=== PATIENT | female | born 1955 | race Caucasian/White ===

== ENCOUNTER 2018-02-17 12:48 | Emergency (ER) | payer OTHER ==
[~2018-02-17] VITALS: Ht 157.5 cm; Wt 77.1 kg
--- NOTE | ~2018-02-17 | EKG ---
[place] [address] [facility] [place] [address] ELECTROCARDIOGRAM REPORT Name: KATIE FIELDS [id number] Admission: 02/17/18 Attend Phys: Discharge: 02/17/18 Date of : 55 Report #: [id number] THIS REPORT FOR: //name// [facility] ED Test Date: 2018-02-17 Test Time: 12:50:40 Pat Name: KATIE FIELDS Department: Room: Gender: F Budget Director: DEVANTE : 1955 Requested By: Abhinav Stewart Order Number: [id number] MD: Ramsey Reeves Measurements Intervals [place] Rate: 74 P: -23 NC: 174 QRS: -4 QRSD: 153 T: 123 QT: 438 QTc: 486 Interpretive Statements Sinus rhythm Left bundle branch block Compared to ECG 07/15/2016 09:12:40 No significant changes Electronically Signed On 02-18-2018 7:40:44 CDT by Ramsey Reeves [email or web address] <ELECTRONICALLY SIGNED> By: Ramsey Reeves MD, [facility] 02/18/18 0740 1250 1250 Ramsey Reeves MD, FACC /EPI
[~2018-02-17 12:48] MED LIST: 1ST CHOICE LAN1 EACH MC; ALBUTEROL INHAL17 GM IH; AVELOX 400 MG400 MG PO; AZITHROMYCIN 2250 MG PO; CIPROFLOXACIN500 M1 PO; CLEOCIN HCL150 MG PO; DOXYCYCLINE 10100 M1 PO; DOXYCYCLINE 10100 MG PO; FLEXERIL PO; HUMULIN N100 UNIT/1 SQ; HUMULINR100 SUBQ; IBUPROFEN 600600 M1 PO; MACROBID 100 M100 M1 PO; MOBIC7.5 MG PO; NAPROSYN500 M1 PO; NAPROSYN500 MG PO; NORCO 5-325 TA1 EACH PO; NOVOLIN N100 UNIT/1; NOVOLIN N100 UNIT/1 SUBQ; NOVOLIN N100 UNIT/3 IJ; NOVOLIN R100 UNIT/1 SUBQ; NOVOLOG100 UNIT/1 SUBQ; ONDANSETRON HCL4 M2 PO; PREDNISONE 20 M20 MG PO; PROMETHAZINE D480 ML GT; TESSALON200 MG PO; TRIAM60 TP; TUSSIONEX PENN473 ML PO; VENTOLIN HFA 1818 GM INH; VIBRAMYCIN 100100 M2 PO
[2018-02-17 13:14] LABS: ABSOLUTE NEUTROPHILS 2.4 thou/uL (1.4-8.2); BASOPHILS 0.9 % (0.0-2.0); EOSINOPHILS 2.6 % (0.0-3.0); HEMATOCRIT 36.6 % (37.0-47.0); HEMOGLOBIN 12.2 gm/dL (12.0-15.0); LYMPHOCYTES 36.4 % (24.0-44.0); MCH 29.7 pg (26.0-34.0); MCHC 33.4 g/dL (28.0-37.0); MONOCYTES 9.4 % (1.0-8.0); PLATELET COUNT 247 thou/uL (150-400); POLYS 50.7 % (36.0-66.0); RBC 4.11 mil/uL (4.20-5.00); RDW 14.7 % (10.5-14.5); WBC 4.8 thou/uL (4.0-11.0)
[2018-02-17 13:19] LABS: ANION GAP 13 mmol/L (7-16); BUN 32 mg/dL (7-18); CALCIUM 9.6 mg/dL (8.5-10.1); CHLORIDE 103 mmol/L (98-107); CO2 22 mmol/L (21-32); CREATININE 1.5 mg/dL (0.6-1.0); GLUCOSE 76 mg/dL (74-106); SODIUM 138 mmol/L (136-145)
[2018-02-17 13:25] LABS: TROPONIN-I < 0.04 ng/mL (<0.06)
[2018-02-17 15:59] VITALS: BP 129/45
== END 2018-02-17 16:11 | disposition home or self-care (01) ==
LOC: ER 12:48
PROVIDERS: Physician Assistant
DX: I95.1 Orthostatic hypotension (principal); E11.22 Type 2 diabetes mellitus with diabetic chronic kidney disease; N18.9 Chronic kidney disease, unspecified; Z88.0 Allergy status to penicillin; Z88.2 Allergy status to sulfonamides; Z88.1 Allergy status to other antibiotic agents; Z88.5 Allergy status to narcotic agent

== ENCOUNTER 2018-09-17 20:10 | Emergency (ER) | payer OTHER ==
[~2018-09-17] VITALS: Ht 157.5 cm; Wt 72.6 kg
[2018-09-17 20:35] LABS: ABSOLUTE NEUTROPHILS 2.5 thou/uL (1.4-8.2); HEMOGLOBIN 11.9 gm/dL (12.0-15.0); LYMPHOCYTES 35.9 % (24.0-44.0); MCH 29.6 pg (26.0-34.0); MCV 86.9 fL (80.0-100.0); MONOCYTES 9.3 % (1.0-8.0); PLATELET COUNT 221 thou/uL (150-400); POLYS 50.8 % (36.0-66.0); RBC 4.03 mil/uL (4.20-5.00); RDW 14.8 % (10.5-14.5); WBC 4.9 thou/uL (4.0-11.0)
[2018-09-17] MEDS ORDERED: SYNTHROID175 MCG PO (20:37)
[2018-09-17 20:40] LABS: CALCIUM 9.5 mg/dL (8.5-10.1); CREATININE 1.4 mg/dL (0.6-1.0); POTASSIUM 3.8 mmol/L (3.5-5.1)
[2018-09-17 22:08] VITALS: BP 132/39
== END 2018-09-17 22:10 | disposition home or self-care (01) ==
LOC: ER 20:10
PROVIDERS: Emergency Medicine
DX: R25.2 Cramp and spasm (principal); E11.9 Type 2 diabetes mellitus without complications; E03.9 Hypothyroidism, unspecified; Z88.5 Allergy status to narcotic agent; Z88.0 Allergy status to penicillin; Z88.2 Allergy status to sulfonamides; Z88.8 Allergy status to other drugs, medicaments and biological substances; Z88.6 Allergy status to analgesic agent; Z79.4 Long term (current) use of insulin

== ENCOUNTER 2018-11-05 15:25 | Inpatient (IN) | payer OTHER ==
[~2018-11-05] VITALS: Ht 157.5 cm; Wt 77.1 kg
[~2018-11-05 15:25] MED LIST changes: +SYNTHROID175 MCG PO
[2018-11-05 15:26] VITALS: BP 168/74
[2018-11-05 15:59] LABS: BASOPHILS 0.9 % (0.0-2.0); EOSINOPHILS 3.9 % (0.0-3.0); HEMATOCRIT 35.2 % (37.0-47.0); HEMOGLOBIN 11.2 gm/dL (12.0-15.0); LYMPHOCYTES 18.3 % (24.0-44.0); MCH 28.6 pg (26.0-34.0); MCV 89.4 fL (80.0-100.0); MONOCYTES 9.9 % (1.0-8.0); PLATELET COUNT 248 thou/uL (150-400); RBC 3.94 mil/uL (4.20-5.00); RDW 14.8 % (10.5-14.5); WBC 4.5 thou/uL (4.0-11.0)
[2018-11-05 16:01] LABS: CALCIUM 8.9 mg/dL (8.5-10.1); CREATININE 1.1 mg/dL (0.6-1.0); POTASSIUM 4.8 mmol/L (3.5-5.1)
[2018-11-05 16:07] LABS: ALBUMIN 3.1 g/dL (3.4-5.0); TOTAL PROTEIN 7.2 g/dL (6.4-8.2)
[2018-11-05 17:01] LABS: URINE BILIRUBIN NEGATIVE (Negative); URINE BLOOD 2+ (Negative); URINE CLARITY CLEAR; URINE COLOR YELLOW; URINE GLUCOSE-RANDOM* 3+ (Negative); URINE KETONES NEGATIVE (Negative); URINE LEUKOCYTES-REFLEX NEGATIVE (Negative); URINE NITRITE-REFLEX NEGATIVE (Negative); URINE PROTEIN (DIPSTICK) NEGATIVE (Negative); URINE UROBILINOGEN 0.2 E.U./dl (0.2-1.0)
[2018-11-05 17:06] VITALS: BP 157/83
[2018-11-05 17:22] LABS: BACTERIA-REFLEX 1-9 Few /HPF (None Seen); CASTS None Seen /LPF (None Seen); CRYSTALS None Seen /LPF (None Seen); SQUAMOUS 0-3 Few /LPF (0-3); URINE RBC 3-10 Few /HPF (0-2); URINE WBC-REFLEX None Seen /HPF (0-5)
[2018-11-05 17:30] VITALS: BP 152/74
--- NOTE | 2018-11-05 19:26 | NUR ---
Pt arrived to floor at 1745 per cart from emergency dept in stable condition. Pt oriented to room environment and instructed ethylbenzene converter helper light usage.Dinner given.Around 1800,pt was asked if came with home meds since she has lots of personal belongings parked in big stroller during admission.She said she has meds and not ready to declare nor release it.This rn told pt that meds cannot be kept at bs and will be sent to pharmacy to keep till dc time.Pt said she prefered to go against medical advice.Nursing casino floor supervisor and Lesli Abdul gate clerk notified.Pt escorted out of the room in wc after signing the paperwork at 1832 and saline lock dc'd.
--- NOTE | 2018-11-06 22:05 | EKG ---
[address] [place] [address] ELECTROCARDIOGRAM REPORT Name: KATIE FIELDS Room #: 430-P [facility] IN M.R.#: [id number] ������������������ Admission: 11/05/18 ������������������ Attend Phys: Yuni Herrera Discharge: 11/05/18 ������������������ Date of : 55 Report #: [id number] ����������������������������������������������������������������� [id number] THIS REPORT FOR: //name// [facility] ED Test Date: 2018-11-05 Test Time: 16:14:33 Pat Name: KATIE FIELDS Department: Room: [facility] Gender: F Bakery Clerk: JESUS : 1955 Requested By: Vidal Sellers Order Number: [id number] MD: Andreas Rainey Measurements Intervals [place] Rate: 99 P: 53 NM: 171 QRS: 8 QRSD: 148 T: 146 QT: 393 QTc: 505 Interpretive Statements Sinus rhythm Left bundle branch block Baseline wander in lead(s) V6 Compared to ECG 02/17/2018 12:50:40 No significant changes Electronically Signed On 11-06-2018 22:05:45 SHIP'S OFFICER by Andreas Rainey [email or web address] ��������������������������������������������� <ELECTRONICALLY SIGNED> ���������������������������������������� By: Andreas Rainey MD ��������������������������������������������� 11/06/18 2205 1614 1614 Andreas Rainey MD /EPI
== END 2018-11-05 18:32 | disposition left against medical advice (07) | DRG 602 ==
LOC: ER 15:25 → EROBS 16:39 → 4E 17:20
PROVIDERS: Emergency Medicine; ADMIT Hospitalist
DX: L03.116 Cellulitis of left lower limb (principal); E43 Unspecified severe protein-calorie malnutrition; L03.115 Cellulitis of right lower limb; E03.9 Hypothyroidism, unspecified; E11.65 Type 2 diabetes mellitus with hyperglycemia; Z53.21 Procedure and treatment not carried out due to patient leaving prior to being seen by health care provider; Z79.4 Long term (current) use of insulin; Z88.6 Allergy status to analgesic agent; Z88.1 Allergy status to other antibiotic agents; Z88.0 Allergy status to penicillin; Z88.2 Allergy status to sulfonamides; Z88.8 Allergy status to other drugs, medicaments and biological substances; Z59.0 Homelessness; Z79.899 Other long term (current) drug therapy
CPT/HCPCS: 10084

== ENCOUNTER → 2018-11-22 | Outpatient (CLI) | payer OTHER | LOC: HYPER 11-15 10:34 | DX: E11.622 Type 2 diabetes mellitus with other skin ulcer (principal); I87.333 Chronic venous hypertension (idiopathic) with ulcer and inflammation of bilateral lower extremity; L97.821 Non-pressure chronic ulcer of other part of left lower leg limited to breakdown of skin; L97.811 Non-pressure chronic ulcer of other part of right lower leg limited to breakdown of skin; L30.9 Dermatitis, unspecified; I89.0 Lymphedema, not elsewhere classified; E11.21 Type 2 diabetes mellitus with diabetic nephropathy; E11.22 Type 2 diabetes mellitus with diabetic chronic kidney disease; I12.9 Hypertensive chronic kidney disease with stage 1 through stage 4 chronic kidney disease, or unspecified chronic kidney disease; N18.9 Chronic kidney disease, unspecified; E03.9 Hypothyroidism, unspecified; Z79.4 Long term (current) use of insulin ==

== ENCOUNTER 2019-07-30 18:37 | Inpatient (IN) | payer OTHER ==
[~2019-07-30] VITALS: Ht 157.5 cm; Wt 74.8 kg
[2019-07-30 18:38] VITALS: BP 191/80
[2019-07-30 19:28] LABS: BE(vivo) -2.3 mmol/L (-2 to +3); HCO3 21.1 mmol/L (22.0-26.0); PCO2 32.2 mmHg (35.0-45.0); pH 7.435 (7.360-7.450); sO2 91.7 % (92.0-98.0)
[2019-07-30 19:28] LABS: ABSOLUTE NEUTROPHILS 4.9 thou/uL (1.4-8.2); BASOPHILS 0.6 % (0.0-2.0); HEMATOCRIT 37.4 % (37.0-47.0); HEMOGLOBIN 12.4 gm/dL (12.0-15.0); LYMPHOCYTES 10.4 % (24.0-44.0); MCH 29.1 pg (26.0-34.0); MCV 88.1 fL (80.0-100.0); MONOCYTES 3.8 % (1.0-8.0); PLATELET COUNT 176 thou/uL (150-400); POLYS 85.2 % (36.0-66.0); RBC 4.25 mil/uL (4.20-5.00); RDW 13.7 % (10.5-14.5); WBC 5.7 thou/uL (4.0-11.0)
[2019-07-30 19:37] LABS: CALCIUM 9.3 mg/dL (8.5-10.1); CREATININE 1.3 mg/dL (0.6-1.0)
[2019-07-30 19:43] LABS: ALBUMIN 2.8 g/dL (3.4-5.0); TOTAL BILIRUBIN 0.9 mg/dL (<0.1-1.0)
[2019-07-30 21:06] VITALS: BP 163/70
[2019-07-30] MEDS ORDERED: HUMULIN N100 UNIT/1 SUBQ (21:53)
[2019-07-30 22:15] VITALS: BP 122/48
[2019-07-31] VITALS: BP 120/56
--- NOTE | 2019-07-31 03:24 | NUR ---
Admission history and assessments completed. Careplam initiated. Continues to require 6L/NC to maintain optimalsaturation. Cough mostly non productive. Clear when able to clear.
[2019-07-31 03:45] VITALS: BP 118/50
[2019-07-31 05:18] LABS: CALCIUM 8.3 mg/dL (8.5-10.1); CREATININE 1.4 mg/dL (0.6-1.0); POTASSIUM 4.2 mmol/L (3.5-5.1)
[2019-07-31 07:31] VITALS: BP 138/53
[2019-07-31] MEDS ORDERED: LEVAQUIN 500 M500 M5 PO (08:13)
[2019-07-31] MEDS ORDERED: BENZONATATE200 MG PO (08:14)
[2019-07-31 11:31] VITALS: BP 142/61
--- NOTE | 2019-07-31 12:02 | NUR ---
PATIENT REFUSED OT EVALUATION PLEASE REFER TO VARIANCE. WILL DISCHARGE AT THIS TIME. THANK YOU
--- NOTE | 2019-07-31 14:54 | NUR ---
ASSESSMENT: CM REVIEWED CHART AND MET WITH PATIENT AT THE BEDSIDE. PT WAS ADMITTED WITH ACUTE HYPOXIC RESPIRATORY FAILURE. CM MET WITH PATIENT TO DISCUSS HER LIVING ARRANGEMENTS AND PT STATES SHE IS A VERY PRIVATE PERSON. PT IS HOMELESS. PT REPORTS SHE STAYS SOMEWHERE OFF OF [facility] AND HAS ALL OF HER BELONGINGS WITH HER. PT STATES SHE USUALLY TAKES HER BELONGINGS WITH HER ON THE BUS AND GOES TO THE STORE AND IS ABLE TO TAKE CARE OF HERSELF. PT REPORTS SHE DOES NOT LIKE HOMELESS SHELTERS. CM ASKED WHERE PT PLANS ON STAYING AT DISCHARGE AND SHE REPORTS SHE IS ABLE TO TAKE CARE OF HERSELF AND SHE WILL RETURN WHERE SHE HAD BEEN STAYING OFF [facility]. PT REPORTS THAT SHE ENJOYS STAYING OUTSIDE AND HAS ENOUGH BELONGINGS TO KEEP HERSELF WARM. PT REPORTS SHE LIVED IN [place] IN THE PAST BUT STATES SHE DOES NOT LIKE [place] ON HER AND IS NOT INTERESTED IN STAYING IN A FACILITY WHERE SHE HAS TO CHECK IN OR BE BOTHERED BY PEOPLE. PT STATES SHE LIKES HER INDEPENDENCY AND WANTS TO RETURN TO HER PRIOR ARRANGEMENTS. CM DISCUSSED ROLE AND POSSIBLE RCF [place] SHE COULD STAY AT AND SHE STATES SHE PREFERS NOT TO. CM ASKED IF PATIENT NEEDED ANY RESOURCES AND SHE STATES SHE DOES NOT NEED ANYTHING AT THIS TIME AND IS COMFORTABLE TAKING CARE OF HERSELF. CM WILL CONTINUE TO FOLLOW TO ASSIST NEEDED.
[2019-07-31 16:10] VITALS: BP 162/67
[2019-07-31 19:19] VITALS: BP 139/93
--- NOTE | 2019-07-31 19:58 | NUR ---
PT HAS A PRODUCTIVE COUGH WITH CLEAR SPUTUM...ON 3L NC...DIMINISHED LUNG SOUNDS...
[2019-08-01 03:59] VITALS: BP 129/60
[2019-08-01 05:12] LABS: HEMATOCRIT 33.6 % (37.0-47.0); HEMOGLOBIN 10.6 gm/dL (12.0-15.0); MCH 28.2 pg (26.0-34.0); MCHC 31.6 g/dL (28.0-37.0); MCV 89.3 fL (80.0-100.0); RBC 3.77 mil/uL (4.20-5.00); RDW 14.2 % (10.5-14.5); WBC 5.6 thou/uL (4.0-11.0)
[2019-08-01 05:27] LABS: CALCIUM 9.1 mg/dL (8.5-10.1); CREATININE 1.1 mg/dL (0.6-1.0); POTASSIUM 4.3 mmol/L (3.5-5.1)
--- NOTE | 2019-08-01 07:19 | NUR ---
Received pt. with O2 at 3L/NC then RT titrated down to 1.5 N/C by morning. She verbalized shortness of breath with exertion but better. She stated she slept well in recliner chair but woke up sweating. She kept her room temp at 75 degrees then had heavy blanket/comforter. Up with SBA ,periods of being unsteady. Making progress towards care plan goals.
[2019-08-01 07:28] VITALS: BP 141/58
--- NOTE | 2019-08-01 08:10 | HC ---
[facility] [place] [address] CONSULTATION Name: KATIE FIELDS Room #: 350- ADM IN M.R.#: [id number] Admission: 07/30/19 Attend Phys: Alexander Romero MD Discharge: Date of : 55 Report #: [id number] THIS REPORT FOR: //name// CC: FAM physician/PCP Alexander Romero DATE OF SERVICE: 07/31/2019 ENDOCRINE CONSULTATION CONSULTING PHYSICIAN: Dr. Romero. REASON FOR CONSULTATION: Uncontrolled type 2 diabetes mellitus. HISTORY OF PRESENT ILLNESS: This is a 64-year-old female patient whose medical background is significant for type 1 diabetes mellitus diagnosed at the age of 16 as well as hypothyroidism. The patient is presented to us with the issue of shortness of breath and cough in the context of pneumonia and was admitted for further care and monitoring. Again, the patient notes that she has type 1 diabetes mellitus diagnosed at the age of 16 and notes that she is maintained on a regimen of NPH insulin, human regular insulin that she takes at a dosage of NPH 18 twice a day and human R insulin 60 units twice a day. She insists that her blood glucose values have been under excellent control and typically in the low 100s mg/dL without much issue with hypoglycemia. When asked about recent hemoglobin A1c, she noted that her primary care physician retains this information. She does not believe that diabetes has caused her any damage in the form of retinopathy, nephropathy or neuropathy. She does not have known cardiovascular disease history. The patient also has hypothyroidism for many years and is maintained on levothyroxine 175 mcg daily and made a comment that she has allergies towards it, but would not elaborate on how or what form of these allergies exactly take. REVIEW OF SYSTEMS: CONSTITUTIONAL: Fatigue, tiredness, but not fever or chills or changes in body weight. HEENT: Negative for sore throat, sinus pain or ear drainage. PULMONARY: Noted for dyspnea on exertion, chest tightness, cough, but no hemoptysis. CARDIAC: Negative for palpitations, syncope, presyncope, extremes of leg swelling. GASTROINTESTINAL: Occasional nausea, no vomiting, no major changes in bowel movement frequency. NEUROLOGY: Negative for loss of consciousness, seizure activity and she vaguely alluded to some numbness involving her feet. [facility] [address] [place] [address] CONSULTATION Name: KATIE FIELDS Room #: [address] [place] [address] IN M.R.#: [id number] Admission: 07/30/19 Attend Phys: Alxeander Romero MD Discharge: Date of : 55 Report #: [id number] SKIN: Negative for rash, ulceration or other major abnormalities. PSYCHIATRIC: Negative for delusions, hallucinations. Otherwise, review of systems noncontributory unless mentioned in HPI. PAST MEDICAL HISTORY: 1. Type 1 diabetes mellitus as noted above. 2. Hypothyroidism. 3. History of cellulitis. OUTPATIENT MEDICATIONS: Insulin 60 units twice a day and NPH insulin 18 units twice a day, levothyroxine 175 mcg daily. ALLERGIES: ROSIGLITAZONE, CODEINE, ERYTHROMYCIN, NIACIN, PENICILLIN, SULFA. She also noted that gabapentin does not work very well for her. FAMILY HISTORY: Noncontributory. SOCIAL HISTORY: The patient lives alone. She does not have children. Denies use of tobacco, alcohol or illicit drugs. When asked about where she lives, she became defensive and said that she does not like to share that with antibodies so that people would not bother her. PHYSICAL EXAMINATION: GENERAL: female patient who is not in apparent pain or distress. VITAL SIGNS: Blood pressure is 142/61 mmHg, heart rate is 85 beats per minute, respirations 20 per minute, temperature of 36.4 degrees. CONSTITUTIONAL: She was sitting at the side of her bed. She seems relatively comfortable, not in apparent distress. She was fairly distracted by her phone throughout my interview with her. HEENT: Anicteric sclerae. Intact extraocular motions. NECK: Supple, without JVD or thyromegaly. CHEST: Noted for moderate air entry with bilateral rhonchi and rales. No wheezes or crackles. HEART: Regular rate and rhythm without murmurs or gallops. ABDOMEN: Soft and lax without tenderness or organomegaly. She has active bowel sounds. EXTREMITIES: Lower extremity exam noted for trace ankle edema. No skin breaks, ulcerations. Pedal pulses are appreciated. NEUROLOGIC: Awake, alert and oriented to time, place and person. The rest of her examination was largely nonfocal. PSYCHIATRIC: Flat mood and affect, interactive, able to answer essentially all my questions; however, noted for orally defensive tone. She expressed multiple times that she is very protective of her identity of her place of living of her diabetes management and that she really does not like people interfering with any of these. She had flight of ideas. She occasionally would go to the topics that were not provided by myself and talked about a random people and events in [facility] [address] [place] [address] CONSULTATION Name: KATIE FIELDS Room #: 350-P ADM IN M.R.#: [id number] Admission: 07/30/19 Attend Phys: Alexander Romero MD Discharge: Date of : 55 Report #: [id number] her life. LABORATORY DATA: Blood glucose values here were at 284, then 391 this morning and most recently 454. Sodium 130, potassium 4.2, chloride 97, CO2 of 25, anion gap 8, BUN 28, creatinine 1.4, AST 33, amylase 58, lipase 206. Total bilirubin 0.9, calcium 8.3, phosphorus 2.6, magnesium 1.8, alkaline phosphatase 101, ALT 22, total protein 8.0, albumin 2.8, EGFR 38, white blood count 5.7, hemoglobin 12.4, hematocrit 37.4, platelets 176. Hemoglobin A1c obtained in 04/2009 was at 16.5. ASSESSMENT AND PLAN: 1. Type 1 diabetes mellitus. As noted above, the patient has type 1 diabetes mellitus that she claims to control well with a regimen of NPH insulin and R insulin. However, her historic hemoglobin A1c data as well as her current blood glucose data contradicted this notion a rather strongly. I noticed repeatedly during my conversation with her that she seemed rather uninterested in acquiring help to manage her diabetes and said that she is capable of doing this on her own. I explained that the current circumstances of an active pulmonary infection as well as the need to use intravenous glucocorticoids, which she has been started on __ the high potential to worsen hyperglycemia, which she acknowledged. Eventually, she agreed to be me supervising her diabetes care during this hospital stay. I will request a hemoglobin A1c to update our understanding of her level of control over the past few months. I will also restore a basal bolus regimen in the form of a 14 units of NPH twice a day as well as coverage with 8 units of R insulin for each meal while we support her with the Humalog supplemental scale low intensity. Blood glucose monitoring will commence a.c. and at bedtime and further adjustments to her regimen will be conducted as needed. 2. Hypothyroidism. The patient has longstanding hypothyroidism and is maintained on levothyroxine dose of 175 mcg daily. This will be continued here, but I will also check a TSH and free T4 levels to better understand the efficacy of this dosage. 3. Diabetic neuropathy. The patient was placed on gabapentin to control her diabetes neuropathic symptoms. 4. Pneumonia. The patient is currently maintained on Rocephin and Zithromax as well as IV glucocorticoids as per hospital medicine team. I certainly appreciate this consultation by Dr. Romero. <ELECTRONICALLY SIGNED> By: Lacho Bass MD 08/01/19 0810 1249 0048 Lacho Bass MD /nt
[2019-08-01 17:01] VITALS: BP 168/66
--- NOTE | 2019-08-01 18:06 | NUR ---
ASSUMED PATIENT CARE AT 0700. TITRATED TO RA. AMBULATED IN ROOM WITHSTEADY GAIT. PATIENT BREFUSED NOON BS CHECK AND REFUSED TO HAVE LISPRO IN AM THAT STATE MY BLOOD SURGER OK 300 TO 400. NOT TOWARDS POC GOALS,
--- NOTE | 2019-08-01 19:00 | EKG ---
[place] [address] [address] [facility] [place] [address] ELECTROCARDIOGRAM REPORT Name: KATIE FIELDS Room #: 350-P ADM IN M.R.#: [id number] Admission: 07/30/19 Attend Phys: Alexander Romero MD Discharge: Date of : 55 Report #: [id number] THIS REPORT FOR: //name// [facility] ED Test Date: 2019-07-30 Test Time: 19:18:20 Pat Name: KATIE FIELDS Department: Room: 350 Gender: F Director Workforce Management: JANNA : 1955 Requested By: Branden Munson Order Number: [id number] MD: Ramsey Reeves Measurements Intervals [place] Rate: 111 P: 60 [place]: 152 QRS: -9 QRSD: 145 T: 150 QT: 358 QTc: 487 Interpretive Statements Sinus tachycardia Left bundle branch block Baseline wander in lead(s) V4 Compared to ECG 11/05/2018 16:14:33 No significant change was found Electronically Signed On 08-01-2019 19:00:02 INTEGRATIVE MEDICINE PHYSICIAN by Ramsey Reeves [email or web address] <ELECTRONICALLY SIGNED> By: Ramsey Reeves MD, [facility] 08/01/191899 17 17 Ramsey Reeves MD, [facility] /EPI
[2019-08-01 19:12] VITALS: BP 156/67
[2019-08-01 23:17] VITALS: BP 170/77
--- NOTE | 2019-08-01 23:21 | NUR ---
Telemetry discontinued this evening. Pt. transferred to with all her belongings.Tolerating room air well though verbalized shortness of breath with exertion. Making progress towards care plan goals.
--- NOTE | 2019-08-02 03:20 | NUR ---
ASSUMED PT CARE AT 2310. PT IS ALERT AND ORIENTED. DURING THE REASSESSMENT THE PT ASKS QUESTIONS ABOUT WHAT I AM DOING AND WHY. PT STATES THAT SHE IS READY TO GET OUT OF THE HOSPITAL AND GET SOME FRESH AIR. PT IS AWARE OF HER LOCATION AND WHY SHE IS IN THE HOSPITAL. PT WANTS HER BELONGINGS CLOSE TO HER. PT STATED THAT SHE WAS HUNGRY AND I OFFERED HER SNACKS AND SHE SAID THAT SHE HAD SOME IN HER LUGG[place] AND THAT SHE JUST NEEDED CRACKERS. PT ASKS MULTIPLE TIMES WHEN SHE WOULD BE LEAVING. STATEST THAT A FRIEND OF HER IS GOING TO GET A HOTEL FOR HER ONCE SHE LEAVES THE HOSPITAL. PT IS VURRENTLY SLEEP IN HER CHAIR. WILL CONTINUE TO MONITOR.
[2019-08-02 04:46] VITALS: BP 166/76
--- NOTE | 2019-08-02 06:54 | NUR ---
PT STILL ON RA,TOLERATING WELL O2 SAT ABOVE 95 .NO C/O SOB NOTED SO FAR.PT SLEPT IN THE RECLINER IN HER ROOM PER HER REQUEST.
[2019-08-02 08:19] VITALS: BP 162/57
--- NOTE | 2019-08-02 14:25 | NUR ---
ASSUMED CARE OF PT AT 0700. PT REFUSES TO TAKE ANY INSULIN OTHER THAN HUMALIN R REGULAR. EXPLAINED TO PT THE IMPORTANCE OF TAKING INSULIN WITH THE BS BEING HIGH AND PT STILL REFUSED. PT REFUSES BS CHECKS PERIODICALLY AND REFUSES MEDICATIONS UNTIL SHE IS CALM. PT ONLY WANTS ONE THING TO BE DONE AT A TIME. L FOREARM IV IS DRY AND INTACT. PT REFUSED SCD'S AND IS UP IN THE CHAIR. PT HAD A BM TODAY. PT WANTS TO BE DISCHARGED BY TOMORROW. PT IS NOT A FALL RISK BUT PT HAS BEEN EDUCATED ON FALL PRECAUTIONS. CALL LIGHT IS IN REACH. WILL CONTINUE TO MONITOR THE PT.
[2019-08-02 17:41] VITALS: BP 122/81
[2019-08-02 19:47] VITALS: BP 172/69
--- NOTE | 2019-08-03 04:04 | NUR ---
ASSUMED PT CARE ON 08/03/19 AT 1920. PT IS ALERT AND ORIENTED X4. PT IS UP AD ELÍAS. PT HAD A BLOOD SUGAR OF 463. I CALLED THE PHYSICIAN. HE INSTRUCTED TO GIVE A ONE TIME ORDER OF 15 UNITS OF LISPRO. PT TOOK THIS INSULIN WILLINGLY. PT REFUSED THE OTHER INSULIN. PT TOOK THE ORAL MEDICATION WILLINGLY. WHEN I ASKED IF THE PT NEEDED ANYTHING SHE STATED THAT SHE WANTED TO FIND SOME WHERE TO LIVE AND TO PAY DIFFERENTLY. PT VOICES THAT SHE IS READY TO DISCHARGE FROM THE HOSPITAL. PT REFUSED TO GET INTO BED, PT IS ASLEEP IN CHAIR. WILL CONTINUE TO MONITOR.
[2019-08-03 04:57] LABS: HEMATOCRIT 34.2 % (37.0-47.0); HEMOGLOBIN 10.9 gm/dL (12.0-15.0); MCH 28.2 pg (26.0-34.0); MCHC 31.9 g/dL (28.0-37.0); MCV 88.1 fL (80.0-100.0); RBC 3.88 mil/uL (4.20-5.00); RDW 14.5 % (10.5-14.5); WBC 6.1 thou/uL (4.0-11.0)
[2019-08-03 05:03] LABS: CALCIUM 8.7 mg/dL (8.5-10.1); POTASSIUM 4.3 mmol/L (3.5-5.1)
[2019-08-03 08:30] VITALS: BP 185/76
[2019-08-03] MEDS ORDERED: SYNTHROID100 MC1 PO (12:42)
[2019-08-03 14:29] VITALS: BP 185/76
--- NOTE | 2019-08-03 19:48 | NUR ---
PT CARE ASSUMED APPROX. 0700. A&Ox4. IV INTACT. REMOVED AT DISCHARGE. PT DISCHARGED. REFUSED ANY AFTER CARE WITH SPA RECEPTIONIST. PT. INFORMED THAT HER SCRIPT WAS CALLED IN AND THAT SHE NEEDED TO GO PICK IT UP INFRMED MYSELF THAT SHE WOULD NOT BE ABLE TO GET IT UNTIL TOMORROW. PT. REFUSED HER INSULIN AT 1130. AFTER REEDUCATING ABOUT THE NEED AND HOW INSULIN WORKS SHE STILL REFUSED.
== END 2019-08-03 16:30 | disposition home or self-care (01) | DRG 871 ==
LOC: ER 18:37 → 3W 20:36 → EROBS 20:36 → 4S 20:36 → 3W 21:55 → 3N 21:59 → 3W 22:02 → 4S 08-01 23:12 → ENTRNSPT 08-03 15:26 → EDTRNSPTSTS 08-03 15:29 → 4S 08-03 16:30
PROVIDERS: Emergency Medicine; Internal Medicine; Nurse Practitioner Family; Physician Assistant; ADMIT Hospitalist
DX: A41.9 Sepsis, unspecified organism (principal); J18.9 Pneumonia, unspecified organism; J96.01 Acute respiratory failure with hypoxia; E03.9 Hypothyroidism, unspecified; E10.40 Type 1 diabetes mellitus with diabetic neuropathy, unspecified; E10.65 Type 1 diabetes mellitus with hyperglycemia; Z79.4 Long term (current) use of insulin; Z88.6 Allergy status to analgesic agent; Z88.1 Allergy status to other antibiotic agents; Z88.0 Allergy status to penicillin; Z88.2 Allergy status to sulfonamides; Z88.8 Allergy status to other drugs, medicaments and biological substances; Z91.19 Patient's noncompliance with other medical treatment and regimen
CPT/HCPCS: 10102; 10879

== ENCOUNTER 2019-08-18 10:52 | Emergency (ER) | payer OTHER ==
[~2019-08-18] VITALS: Ht 157.5 cm; Wt 74.8 kg
[~2019-08-18 10:52] MED LIST changes: +BENZONATATE200 MG PO; +HUMULIN N100 UNIT/1 SUBQ; +LEVAQUIN 500 M500 M5 PO; +SYNTHROID100 MC1 PO
[2019-08-18 11:45] LABS: ABSOLUTE NEUTROPHILS 3.4 thou/uL (1.4-8.2); EOSINOPHILS 1.9 % (0.0-3.0); HEMATOCRIT 30.9 % (37.0-47.0); HEMOGLOBIN 9.9 gm/dL (12.0-15.0); MCH 28.4 pg (26.0-34.0); MCHC 31.9 g/dL (28.0-37.0); MCV 89.1 fL (80.0-100.0); MONOCYTES 9.1 % (1.0-8.0); PLATELET COUNT 250 thou/uL (150-400); RBC 3.47 mil/uL (4.20-5.00); WBC 4.9 thou/uL (4.0-11.0)
[2019-08-18 11:46] LABS: ANION GAP 6 mmol/L (7-16); BUN 13 mg/dL (7-18); CALCIUM 9.1 mg/dL (8.5-10.1); CHLORIDE 99 mmol/L (98-107); CO2 30 mmol/L (21-32); GLUCOSE 120 mg/dL (74-106); POTASSIUM 3.8 mmol/L (3.5-5.1); SODIUM 135 mmol/L (136-145)
[2019-08-18 11:57] LABS: ALBUMIN 2.7 g/dL (3.4-5.0); DIRECT BILIRUBIN 0.3 mg/dL (<0.1-0.3); SGOT 39 U/L (15-37); SGPT 40 U/L (30-65); TOTAL BILIRUBIN 1.6 mg/dL (<0.1-1.0); TROPONIN-I <0.06 ng/mL (<0.06)
[2019-08-18] MEDS ORDERED: DOXYCYCLINE 10100 MG PO (12:32)
--- NOTE | 2019-08-18 13:10 | EKG ---
[facility] [place] [address] ELECTROCARDIOGRAM REPORT Name: KATIE FIELDS [id number] Admission: 08/18/19 Attend Phys: Discharge: Date of : 55 Report #: [id number] THIS REPORT FOR: //name// [facility] ED Test Date: 2019-08-18 Test Time: 11:07:58 Pat Name: KATIE FIELDS Department: Room: Gender: F Rehabilitation Counsellor: SHELLIE : 1955 Requested By: Iram Myers Order Number: [id number] MD: Ramsey Reeves Measurements Intervals [place] Rate: 95 P: 65 SC: 166 QRS: -3 QRSD: 139 T: 104 QT: 380 QTc: 478 Interpretive Statements Sinus tachycardia Atrial premature complexes Left bundle branch block Baseline wander in lead(s) V3 Compared to ECG 07/30/2019 19:18:20 Atrial premature complex(es) now present Electronically Signed On 08-18-2019 13:09:54 VP RHEUMATOLOGY by Ramsey Reeves [email or web address] <ELECTRONICALLY SIGNED> By: Ramsey Reeves MD, [facility] 08/18/19 1309 06 Ramsey Reeves MD, FAC /EPI
[2019-08-18 13:23] VITALS: BP 152/56
== END 2019-08-18 13:24 | disposition home or self-care (01) ==
LOC: ER 10:52
PROVIDERS: Emergency Medicine
DX: L03.116 Cellulitis of left lower limb (principal); L03.115 Cellulitis of right lower limb; R60.0 Localized edema; E03.9 Hypothyroidism, unspecified; E11.22 Type 2 diabetes mellitus with diabetic chronic kidney disease; N18.9 Chronic kidney disease, unspecified; Z88.5 Allergy status to narcotic agent; Z88.1 Allergy status to other antibiotic agents; Z88.0 Allergy status to penicillin; Z88.2 Allergy status to sulfonamides; Z79.899 Other long term (current) drug therapy; Z79.2 Long term (current) use of antibiotics; Z86.73 Personal history of transient ischemic attack (TIA), and cerebral infarction without residual deficits; Z87.01 Personal history of pneumonia (recurrent)

== ENCOUNTER 2021-03-09 19:19 | Emergency (ER) | payer OTHER ==
[~2021-03-09] VITALS: Ht 157.5 cm; Wt 74.8 kg
[2021-03-09 19:48] LABS: ABSOLUTE NEUTROPHILS 3.8 thou/uL (1.4-8.2); BASOPHILS 0.8 % (0.0-2.0); HEMATOCRIT 33.1 % (37.0-47.0); HEMOGLOBIN 11.3 gm/dL (12.0-15.0); LYMPHOCYTES 25.1 % (24.0-44.0); MCH 31.2 pg (26.0-34.0); MCV 91.8 fL (80.0-100.0); MONOCYTES 12.1 % (1.0-8.0); PLATELET COUNT 225 thou/uL (150-400); RDW 13.4 % (10.5-14.5); WBC 6.2 thou/uL (4.0-11.0)
[2021-03-09 20:10] LABS: ANION GAP 11 mmol/L (7-16); BUN 39 mg/dL (7-18); CALCIUM 8.6 mg/dL (8.5-10.1); CHLORIDE 99 mmol/L (98-107); CO2 24 mmol/L (21-32); CREATININE 2.2 mg/dL (0.6-1.0); GLUCOSE 324 mg/dL (74-106); POTASSIUM 4.7 mmol/L (3.5-5.1); SODIUM 134 mmol/L (136-145)
[2021-03-09 20:16] LABS: ALBUMIN 3.4 g/dL (3.4-5.0); SGOT 15 U/L (15-37); SGPT 22 U/L (30-65); TOTAL BILIRUBIN 1.2 mg/dL (0.2-1.0); TOTAL PROTEIN 7.3 g/dL (6.4-8.2); TROPONIN-I <0.06 ng/mL (<0.06)
[2021-03-09 20:50] VITALS: BP 175/61
--- NOTE | 2021-03-10 07:09 | EKG ---
[place] [address] [address] [place] [address] ELECTROCARDIOGRAM REPORT Name: KATIE FIELDS [id number] Admission: 03/09/21 Attend Phys: Discharge: 03/09/21 Date of : 55 Report #: [id number] [facility] ED Test Date: 2021-03-09 Test Time: 19:31:20 Pat Name: KATIE FIELDS Department: Room: Gender: F Manager Med Surg: insesa : 1955 Requested By: Mala Payne Order Number: [id number] MD: Bull Manriquez Measurements Intervals [place] Rate: 74 P: 75 [place]: 175 QRS: 2 QRSD: 165 T: 133 QT: 452 QTc: 502 Interpretive Statements Sinus rhythm Left bundle branch block Compared to ECG 08/18/2019 11:07:58 Sinus tachycardia no longer present Atrial premature complex(es) no longer present Electronically Signed On 03-10-2021 7:09:42 CDT by Bull Manriquez [email or web address] <ELECTRONICALLY SIGNED> By: Bull Manriquez MD, [facility] 03/10/21 07 30 30 Bull Manriquez MD, FACC /EPI
== END 2021-03-09 21:03 | disposition home or self-care (01) ==
LOC: ER 19:19
PROVIDERS: Physician Assistant
DX: N17.9 Acute kidney failure, unspecified (principal); E86.0 Dehydration; E11.9 Type 2 diabetes mellitus without complications; E03.9 Hypothyroidism, unspecified; N18.9 Chronic kidney disease, unspecified; Z86.73 Personal history of transient ischemic attack (TIA), and cerebral infarction without residual deficits; Z79.899 Other long term (current) drug therapy; Z79.4 Long term (current) use of insulin; Z79.2 Long term (current) use of antibiotics; Z88.8 Allergy status to other drugs, medicaments and biological substances; Z88.5 Allergy status to narcotic agent; Z88.1 Allergy status to other antibiotic agents; Z88.0 Allergy status to penicillin; Z88.2 Allergy status to sulfonamides; Z59.0 Homelessness

== ENCOUNTER 2021-11-03 02:18 | Inpatient (IN) | payer OTHER ==
[~2021-11-03] VITALS: Ht 157.5 cm; Wt 68.4 kg
--- NOTE | ~2021-11-03 | EMS ---
[facility] [address] [place] [address] EMS Patient Care Report Name: KATIE FIELDS Room #: 444-P [facility] IN M.R.#: [id number] Admission: 11/03/21 Attend Phys: Yuni Herrera Discharge: 11/06/21 Date of : 55 Report #: [id number] THIS REPORT FOR: //name// Report Transmitted: 11/07/2021 11:25 EMS Care Summary [place], [place]/[facility] Incident [id number] @ 11/03/2021 01:35 Incident Location [address] [place] [id number] Patient KATIE FIELDS Female, 66 Years 1955 Patient Address [address] [place], [place] [id number] Patient History Type 1 Diabetes, Patient Allergies Codeine,Penicillin allergy, Patient Medications Insulin, Chief Complaint I feel so weak Disposition Transported No Lights/[place] Dispatch Reason Diabetic Problem Transported To [facility] Narrative Called for a diabetic. Upon arrival, pt was TA x 3 sitting on a couch in the basement of a [employer]ah[employer]ism accessory building. She said she didn't feel good and she felt dehydrated. She requested transport to the ER for further eval & tx. Pt was assisted to the EMS cot and loaded into the ambulance w/o incident. Vitals [facility] [address] [place] [address] EMS Patient Care Report Name: KATIE FIELDS Room #: 444-P [facility] IN M.R.#: [id number] Admission: 11/03/21 Attend Phys: Yuni Castillo Sharon Discharge: 11/06/21 Date of : 55 Report #: [id number] obtained. 18g IV SL and D-stick which read HI. 500cc NS w/o. Vitals repeated. En route: no changes. RR to the ER. Arrived: pt taken to ER #7 and moved to their bed w/o incident. Pt care & report to ER staff. Initial Vitals @01:57P: 89,R: 16,BP: 93/54,Pain: 0/10,GCS: 15,SpO2: 98,Revised Trauma: 12, @01:52P: 98,R: 18,BP: 94/56,Pain: 0/10,GCS: 15,Glucose: -2,SpO2: 97,Revised Trauma: 12, Assessments @02:14MENTAL:Event Oriented,Time Oriented,Person Oriented,Place Oriented,SKIN:Other,HEENT:LUNG SOUNDS:ABDOMEN:PELVIS//GI:No Abnormalities,EXTREMITIES:Left Arm: No Abnormalities,Right Arm: No Abnormalities,Left Leg: No Abnormalities,Right Leg: No Abnormalities,PULSE:Radial: 2+ Normal,NEURO:No Abnormalities, Impression Diabetic Hyperglycemia Procedures @01:57 IV Therapy - Saline Lock 8cc (18 ga) Site: Antecubital-Left Response: UnchangedSucceeded @02:02 IV Therapy - Normal Saline (.9% NaCl) 500cc (18 ga) Site: Antecubital-Left Response: UnchangedSucceeded @01:50 Stretcher Response: Unchanged @01:48 ALS Assessment Response: UnchangedSucceeded Timeline 01:33,Call Received 01:33,Dispatch Notified 01:35,Dispatched 01:37,En Route 01:47,On Scene 01:48,At Patient 01:48,ALS Assessment,Response: UnchangedSucceeded, 01:50,Stretcher,Response: Unchanged 01:52,BP: 94/56 M,PULSE: 98,RR: 18 R,SPO2: 97 Ox,ETCO2: ,BG: -2,PAIN: 0,GCS: 15, 01:57,IV Therapy - Saline Lock 8cc 18 ga Site: Antecubital-Left,Response: UnchangedSucceeded, 01:57,BP: 93/54 M,PULSE: 89,RR: 16 R,SPO2: 98 Ox,ETCO2: ,BG: ,PAIN: 0,GCS: 15, 02:02,IV Therapy - Normal Saline (.9% NaCl) 500cc 18 ga Site: Antecubital-Left,Response: UnchangedSucceeded, 02:03,Depart Scene 02:12,At Destination [address] [address] EMS Patient Care Report Name: KATIE FIELDS Room #: 444-P [facility] IN M.R.#: [id number] Admission: 11/03/21 Attend Phys: Yuni Herrera Discharge: 11/06/21 Date of : 55 Report #: [id number] 02:30,Call Closed Disclaimer v1.1 Copyright 2021 [employer] This EMS Care Summary contains data elements from the applicable legal record (which may be displayed differently). It is designed to provide pertinent information for the following purposes: continuity of care, clinical quality, and state data reporting. The complete legal record is available to ED staff and administrators of the receiving hospital in [employer]'s Patient Tracker. All data is provided "as is."
--- NOTE | ~2021-11-03 | EMS ---
[facility] [address] [place] [address] EMS Patient Care Report Name: KATIE FIELDS Room #: REG M.R.#: [id number] Admission: 11/03/21 Attend Phys: Discharge: Date of : 55 Report #: [id number] THIS REPORT FOR: //name// Report Transmitted: 11/03/2021 01:35 EMS Care Summary [place], [place]/[facility] Incident [id number] @ 11/03/2021 01:35 Incident Location [address] [place] [address] Patient KATIE FIELDS Female, 66 Years 1955 Patient Address [address] [place] [address] Patient History Type 1 Diabetes, Patient Allergies Codeine,Penicillin allergy, Patient Medications Insulin, Chief Complaint I feel so weak Disposition Transported No Lights/[place] Dispatch Reason Diabetic Problem Transported To [facility] Narrative Called for a diabetic. Upon arrival, pt was TA x 3 sitting on a couch in the basement of a [employer]ism accessory building. She said she didn't feel good and she felt dehydrated. She requested transport to the ER for further eval & tx. Pt was assisted to the EMS cot and loaded into the ambulance w/o incident. Rauls [facility] [address] [place] [address] EMS Patient Care Report Name: KATIE FIELDS Room #: REG [facility].#: [id number] Admission: 11/03/21 Attend Phys: Discharge: Date of : 55 Report #: [id number] obtained. 18g IV SL and D-stick which read HI. 500cc NS w/o. Vitals repeated. En route: no changes. RR to the ER. Arrived: pt taken to ER #7 and moved to their bed w/o incident. Pt care & report to ER staff. Initial Vitals @01:57P: 89,R: 16,BP: 93/54,Pain: 0/10,GCS: 15,SpO2: 98,Revised Trauma: 12, @01:52P: 98,R: 18,BP: 94/56,Pain: 0/10,GCS: 15,Glucose: -2,SpO2: 97,Revised Trauma: 12, Assessments @02:14MENTAL:Place Oriented,Person Oriented,Time Oriented,Event Oriented,SKIN:Other,HEENT:LUNG SOUNDS:ABDOMEN:PELVIS//GI:No Abnormalities,EXTREMITIES:Left Arm: No Abnormalities,Right Arm: No Abnormalities,Left Leg: No Abnormalities,Right Leg: No Abnormalities,PULSE:Radial: 2+ Normal,NEURO:No Abnormalities, Impression Diabetic Hyperglycemia Procedures @01:57 IV Therapy - Saline Lock 8cc (18 ga) Site: Antecubital-Left Response: UnchangedSucceeded @02:02 IV Therapy - Normal Saline (.9% NaCl) 500cc (18 ga) Site: Antecubital-Left Response: UnchangedSucceeded @01:50 Stretcher Response: Unchanged @01:48 ALS Assessment Response: UnchangedSucceeded Timeline 01:33,Call Received 01:33,Dispatch Notified 01:35,Dispatched 01:37,En Route 01:47,On Scene 01:48,At Patient 01:48,ALS Assessment,Response: UnchangedSucceeded, 01:50,Stretcher,Response: Unchanged 01:52,BP: 94/56 M,PULSE: 98,RR: 18 R,SPO2: 97 Ox,ETCO2: ,BG: -2,PAIN: 0,GCS: 15, 01:57,IV Therapy - Saline Lock 8cc 18 ga Site: Antecubital-Left,Response: UnchangedSucceeded, 01:57,BP: 93/54 M,PULSE: 89,RR: 16 R,SPO2: 98 Ox,ETCO2: ,BG: ,PAIN: 0,GCS: 15, 02:02,IV Therapy - Normal Saline (.9% NaCl) 500cc 18 ga Site: Antecubital-Left,Response: UnchangedSucceeded, 02:03,Depart Scene 02:12,[place] [address] EMS Patient Care Report Name: KATIE FIELDS Room #: REG [facility].#: [id number] Admission: 11/03/21 Attend Phys: Discharge: Date of : 55 Report #: [id number] 02:30,Call Closed Disclaimer v1.1 Copyright 2021 [employer] This EMS Care Summary contains data elements from the applicable legal record (which may be displayed differently). It is designed to provide pertinent information for the following purposes: continuity of care, clinical quality, and state data reporting. The complete legal record is available to ED staff and administrators of the receiving hospital in [facility]'s Patient Tracker. All data is provided "as is."
[2021-11-03 02:55] LABS: URINE BILIRUBIN NEGATIVE (Negative); URINE BLOOD TRACE (Negative); URINE CLARITY CLEAR; URINE COLOR YELLOW; URINE GLUCOSE-RANDOM* 3+ (Negative); URINE KETONES 2+ (Negative); URINE LEUKOCYTES-REFLEX NEGATIVE (Negative); URINE NITRITE-REFLEX NEGATIVE (Negative); URINE PROTEIN (DIPSTICK) NEGATIVE (Negative); URINE UROBILINOGEN 0.2 E.U./dl (0.2-1.0)
[2021-11-03 02:55] LABS: ABSOLUTE NEUTROPHILS 4.3 thou/uL (1.4-8.2); BASOPHILS 0.3 % (0.0-2.0); EOSINOPHILS 0.5 % (0.0-3.0); HEMOGLOBIN 11.1 gm/dL (12.0-15.0); LYMPHOCYTES 15.4 % (24.0-44.0); MCH 29.7 pg (26.0-34.0); MCHC 31.7 g/dL (28.0-37.0); MCV 93.7 fL (80.0-100.0); MONOCYTES 6.8 % (1.0-8.0); PLATELET COUNT 188 thou/uL (150-400); RBC 3.73 mil/uL (4.20-5.00); RDW 13.2 % (10.5-14.5); WBC 5.5 thou/uL (4.0-11.0)
[2021-11-03 03:18] LABS: ALBUMIN 3.2 g/dL (3.4-5.0); CALCIUM 9.8 mg/dL (8.5-10.1); TOTAL BILIRUBIN 1.3 mg/dL (0.2-1.0); TOTAL PROTEIN 7.1 g/dL (6.4-8.2)
[2021-11-03 03:21] LABS: POTASSIUM 6.4 mmol/L (3.5-5.1)
[2021-11-03 07:09] LABS: PHOSPHORUS 4.8 mg/dL (2.6-4.7)
[2021-11-03 07:13] LABS: ALBUMIN 3.3 g/dL (3.4-5.0); CALCIUM 10.1 mg/dL (8.5-10.1); CREATININE 1.9 mg/dL (0.6-1.0); PHOSPHORUS 4.6 mg/dL (2.6-4.7)
[2021-11-03 07:20] LABS: POTASSIUM 4.9 mmol/L (3.5-5.1)
[2021-11-03 08:08] LABS: BE(vivo) -15.2 mmol/L (-2 to +3); HCO3 10.9 mmol/L (22.0-26.0); PCO2 VENOUS 27.1 mmHg (41.0-51.0); PO2 VENOUS 62.5 mmHg (35.0-45.0)
--- NOTE | 2021-11-03 08:10 | EKG ---
[place] [address] [facility] [place] [address] ELECTROCARDIOGRAM REPORT Name: KATIE FIELDS Room #: 170-2 ADM IN M.R.#: [id number] Admission: 11/03/21 Attend Phys: Alexander Romero MD Discharge: Date of : 55 Report #: [id number] [facility] ED Test Date: 2021-11-03 Test Time: 03:15:42 Pat Name: KATIE FIELDS Department: Room: 170 Gender: F Case Supervisor: PANTERA : 1955 Requested By: Brady Dalton Order Number: [id number] MD: Bull Manriquez Measurements Intervals [place] Rate: 86 P: 64 [place]: 211 QRS: -27 QRSD: 165 T: 158 QT: 432 QTc: 517 Interpretive Statements Sinus rhythm Probable left atrial enlargement Left bundle branch block Compared to ECG 03/09/2021 19:31:20 No significant changes Electronically Signed On 11-03-2021 8:10:42 LEADERSHIP DEVELOPMENT INSTRUCTOR by Bull Manriquez [email or web address] <ELECTRONICALLY SIGNED> By: Bull Manriquez MD, [facility] 11/03/21 0810 4 Bull Manriquez MD, FACC /EPI
--- NOTE | 2021-11-03 08:11 | EKG ---
[place] [address] [facility] [place] [address] ELECTROCARDIOGRAM REPORT Name: KATIE FIELDS Room #: 170-2 ADM IN M.R.#: [id number] Admission: 11/03/21 Attend Phys: Alexander Romero MD Discharge: Date of : 55 Report #: [id number] [facility] ED Test Date: 2021-11-03 Test Time: 03:43:03 Pat Name: KATIE FIEDLS Department: Room: 170 Gender: F Circuit Judge: : 1955 Requested By: Brady Dalton Order Number: [id number] MD: Bull Manriquez Measurements Intervals [place] Rate: 87 P: 50 [place]: 197 QRS: -31 QRSD: 178 T: 145 QT: 423 QTc: 509 Interpretive Statements Sinus rhythm Probable left atrial enlargement Nonspecific intraventricular conduction delay Compared to ECG 11/03/2021 03:15:42 Intraventricular conduction delay now present Early repolarization now present Possible ischemia now present Electronically Signed On 11-03-2021 8:10:55 ELECTRIC GOLF CART REPAIRER by Bull Manriquez [email or web address] <ELECTRONICALLY SIGNED> By: Bull Manriquez MD, [facility] 11/03/21 0810 034 Bull Manriquez MD, FAC /EPI
[2021-11-03 18:42] LABS: ABSOLUTE NEUTROPHILS 7.1 thou/uL (1.4-8.2); BASOPHILS 0.8 % (0.0-2.0); EOSINOPHILS 0.2 % (0.0-3.0); HEMATOCRIT 30.2 % (37.0-47.0); HEMOGLOBIN 9.9 gm/dL (12.0-15.0); LYMPHOCYTES 16.3 % (24.0-44.0); MCH 29.6 pg (26.0-34.0); MCHC 32.9 g/dL (28.0-37.0); MONOCYTES 7.2 % (1.0-8.0); PLATELET COUNT 185 thou/uL (150-400); POLYS 75.5 % (36.0-66.0); RBC 3.36 mil/uL (4.20-5.00); RDW 13.1 % (10.5-14.5); WBC 9.5 thou/uL (4.0-11.0)
[2021-11-03 18:55] LABS: ALBUMIN 2.5 g/dL (3.4-5.0); CREATININE 1.4 mg/dL (0.6-1.0); POTASSIUM 5.1 mmol/L (3.5-5.1); TOTAL BILIRUBIN 0.9 mg/dL (0.2-1.0)
[2021-11-03 20:55] VITALS: BP 109/47
[2021-11-04] VITALS (67 sets, daily range): BP systolic 96–167; BP diastolic 32–128
[2021-11-04 04:41] LABS: ALBUMIN 2.6 g/dL (3.4-5.0); CALCIUM 8.6 mg/dL (8.5-10.1); CREATININE 1.2 mg/dL (0.6-1.0); PHOSPHORUS 2.3 mg/dL (2.5-4.9); POTASSIUM 4.5 mmol/L (3.5-5.1)
--- NOTE | 2021-11-04 08:05 | NUR ---
ASSUMED CARE OF PT AT 0700 PT DOESN'T HAVE A GOOD UNDERSTANDING OF DIABETES AND TOLD ME THAT SHE DIDN'T KNOW THAT INSULIN LOWERS YOUR BLOOD SUGAR. SHE ALSO STATED THAT SHE KNEW HER BLOOD SUGARS WERE 700 AND SHE HAS INSULIN AT HOME BUT DIDN'T KNOW WHO TO CALL WHEN HER SUGARS WERE HIGH. SHE COULD REALLY BENEFIT FROM SOME DIABETES EDUCATION.
--- NOTE | 2021-11-04 11:30 | NUR ---
66-year-old female patient, came to the ED via [facility]. History of DM and is on insulin, CKD, orthostatic hypotension. Patient c/o weakness, increased thirst, diarrhea and not feeling well for past few days. Patient states that her blood sugars been running in the 600-700 range in the ED. CM visited with patient at bedside, she is pleasant, A & o x 3 with some forgetfulness. Education on safe discharge planning. Chepe stated she stay at [facility], [facility] # [phone] to [address], I am going to be at [facility] at [address] [facility], [place], # [phone]. Independent, like my freedom, always take my medication, give myself my insulin and check my sugar [address] Brewer. no rehab in the past per patient Chepe. Patient gave verbal ok if could talk with Fr [facility] and the apartment complex in [place]. Education on skilled rehab, homeless [place]. how she gets her medication. CM asked patient if was ok to talk with her contacts listed her mom Nancy, she in 2009 and brother alejandrina has brain trauma, I would not call him per patient Chepe. Can call Fr wilder or talk with meena at [facility] per chepe. Psych consulted and was visiting with her at bedside. Cm called Dr. Cobb office, left message requesting a return call to cm, Psych requesting medical records. Called spoke with the campus receptionist at [facility], Fr was at a , campus receptionist passed on that [facility] has asked Chepe not to call the the medical center anymore, but she does stay on the bench at the the medical center that is ok, she stayed her for years. we have found her places to go and she ends up refusing to go, she is homeless, she has her mail sent to post office per the campus receptionist. Will cont. following as needed.
--- NOTE | 2021-11-04 16:14 | NUR ---
I have reviewed the documentation by SHANTHI RAMIREZ from 11/04/21 to 11/04/21 and I concur with it. ANA CRISTINA SANCHES, PT, DPT
--- NOTE | 2021-11-04 19:53 | NUR ---
REPORT CALLED TO [facility] ON . PREPARING PT FOR TRANSFER.
[2021-11-05 05:32] LABS: ABSOLUTE NEUTROPHILS 2.2 thou/uL (1.4-8.2); BASOPHILS 0.4 % (0.0-2.0); EOSINOPHILS 1.3 % (0.0-3.0); HEMATOCRIT 28.9 % (37.0-47.0); HEMOGLOBIN 9.9 gm/dL (12.0-15.0); LYMPHOCYTES 40.1 % (24.0-44.0); MCH 30.4 pg (26.0-34.0); MCHC 34.2 g/dL (28.0-37.0); MCV 88.9 fL (80.0-100.0); MONOCYTES 9.9 % (1.0-8.0); PLATELET COUNT 143 thou/uL (150-400); POLYS 48.3 % (36.0-66.0); RBC 3.25 mil/uL (4.20-5.00); RDW 13.1 % (10.5-14.5); WBC 4.5 thou/uL (4.0-11.0)
--- NOTE | 2021-11-05 05:59 | NUR ---
PT ARRIBVED ON THE UNIT IN A WC AT 2013. PT IS ALERT AND ORIENTED. PT WAS ORINETED TO THE ROOM AND EDUCATED ON THE USE OF CALL LIGHT. PT C/O OF LOW BG, BG WAS CHECKED(49) AND 2 GLUCOSE TAB AND APPLE JUICE WERE GIVEN PER STANDING ORDERS. PT HAS BARRAZA IN PLACE. NO VISIBLE SIGN OF DISTRESS WAS NOTED. FALL PRECAUTIONS IN PLACE. WILL CONTINUE TO MONITOR.
[2021-11-05 06:08] LABS: ALBUMIN 2.4 g/dL (3.4-5.0); CALCIUM 8.2 mg/dL (8.5-10.1); CREATININE 1.1 mg/dL (0.6-1.0); POTASSIUM 4.2 mmol/L (3.5-5.1); TOTAL BILIRUBIN 0.9 mg/dL (0.2-1.0); TOTAL PROTEIN 5.9 g/dL (6.4-8.2)
[2021-11-05 07:42] VITALS: BP 142/70
[2021-11-05 11:30] VITALS: BP 153/62
--- NOTE | 2021-11-05 11:41 | NUR ---
Met with patient who is essentially homeless. She reports she is on a waitlist for her apt at [facility] in [facility]. Offered for skilled care under [facility] insurance. Discussed in detail skilled, senior living care. Patient adament of not going to skilled care, homeless penitentiary, or any other dc plan than [facility] the [facility]. She wants to dc to [facility] where her belongings are located.
[2021-11-05 15:13] VITALS: BP 142/64
--- NOTE | 2021-11-05 15:53 | NUR ---
PT REPORTS FEELING HOT AND SWEATY, BS 35. PT A&OX3-4 REMAINS BASELINE, 12.5MG D5O GIVEN IV, PT EATING AND DRINKING PT GIVEN 480ML APPLE JUICE, 1 MINI CHOCOLATE BAR AND PEANUT BUTTER AND CRACKERS. WILL RECHECK BS IN 30 MINUTES.
[2021-11-05 21:24] VITALS: BP 156/81
--- NOTE | 2021-11-06 04:52 | NUR ---
ASSUMED PT CARE THIS PM. PT IS ALERT AND ORIENTED WITH FORGETFULNESS. PT HAS REDNESS AND NON-PITTING EDEMA TO BLE. MEDS WERE GIVEN PER EMAR ORDERS. PT DID NOT VERBALIZE ANY CONCERNS. PT IS ON RA. NO VISIBLE SIGN OF DISTRESS NOTED. FALL PRECAUTIONS IN PLACE.WILL CONTINUE TO MONITOR.
[2021-11-06 05:37] LABS: CALCIUM 8.1 mg/dL (8.5-10.1); CREATININE 0.9 mg/dL (0.6-1.0); POTASSIUM 4.2 mmol/L (3.5-5.1)
[2021-11-06 07:35] VITALS: BP 153/68
[2021-11-06] MEDS ORDERED: FREESTYLE LANC1 EACH MISCELL (10:50)
[2021-11-06] MEDS ORDERED: HUMALOG100 UNIT/2 SUBQ (10:50)
[2021-11-06] MEDS ORDERED: FLONASE 0.05%50 MCG NASAL (10:50)
[2021-11-06] MEDS ORDERED: TEST STRIPS1 EACH SUBQ (10:50)
[2021-11-06] MEDS ORDERED: [UNRECOGNIZED DRUG - OTHER] SUBQ (10:50)
[2021-11-06] MEDS ORDERED: SYNTHROID100 MC1 PO (10:50)
[2021-11-06] MEDS ORDERED: MUCUS RLF DM E1 EACH PO (10:50)
[2021-11-06] MEDS ORDERED: TESSALON PERLE100 MG PO (10:50)
[2021-11-06] MEDS ORDERED: LANTUS SOL100 UNIT/1 SUBQ (10:50)
[2021-11-06 11:09] VITALS: BP 153/68
--- NOTE | 2021-11-06 11:27 | NUR ---
Pt dcing today and has gotten a ride. She wants her scripts sent to [facility] and does not want cm to fill them here at our outpt pharmacy. No cm interventions indicated. Case discussed with the unit Rn and the attending.
== END 2021-11-06 11:53 | disposition home or self-care (01) | DRG 637 ==
LOC: ER 02:18 → EROBS 04:26 → ICU 04:26 → 4S 04:26 → EROBS 12:28 → ICU 23:51 → 4S 11-04 20:13
PROVIDERS: Emergency Medicine; Nurse Practitioner Family; Pediatrics; ADMIT Hospitalist; ATTEND Hospitalist
DX: E11.10 Type 2 diabetes mellitus with ketoacidosis without coma (principal); G93.41 Metabolic encephalopathy; N17.9 Acute kidney failure, unspecified; E87.5 Hyperkalemia; E11.649 Type 2 diabetes mellitus with hypoglycemia without coma; I95.9 Hypotension, unspecified; N18.9 Chronic kidney disease, unspecified; E03.9 Hypothyroidism, unspecified; E11.22 Type 2 diabetes mellitus with diabetic chronic kidney disease; Z20.822 Contact with and (suspected) exposure to COVID-19; Z79.4 Long term (current) use of insulin; Z87.01 Personal history of pneumonia (recurrent); Z79.899 Other long term (current) drug therapy; Z88.1 Allergy status to other antibiotic agents; Z88.5 Allergy status to narcotic agent; Z88.0 Allergy status to penicillin; Z88.2 Allergy status to sulfonamides; Z88.8 Allergy status to other drugs, medicaments and biological substances; Z83.3 Family history of diabetes mellitus; Z59.00 Homelessness unspecified
CPT/HCPCS: 10078; 10100; 10102